=== PATIENT | female | born 1985 | race African-American/Black ===

== ENCOUNTER 2023-02-14 17:07 | Emergency (ER) | payer OTHER ==
[~2023-02-14] VITALS: Ht 177.8 cm; Wt 75.0 kg
[~2023-02-14 17:07] MED LIST: NOCURR
[2023-02-14] MEDS ORDERED: FERR325T27 PO (17:19)
[2023-02-14 18:00] VITALS: BP 140/86
[2023-02-14] MEDS ORDERED: OXYC-26 PO (19:00)
[2023-02-14] MEDS ORDERED: OxyCODONE HCL/ACETAMINOPHEN 5-325 MG TABLET PO ONE (19:15)
[2023-02-14] MEDS ORDERED: OXYC-38 PO (19:34)
== END 2023-02-14 19:39 | disposition home or self-care (01) ==
LOC: EMS 17:12
DX: S61.452D Open bite of left hand, subsequent encounter (principal); M79.642 Pain in left hand; X58.XXXD Exposure to other specified factors, subsequent encounter
CPT/HCPCS: 99283